=== PATIENT | male | born 1960 | race Caucasian/White ===

== ENCOUNTER 2022-08-16 14:13 | Emergency (ER) | payer MEDICAID, MEDICARE ==
[~2022-08-16] VITALS: Ht 175.3 cm; Wt 60.0 kg
[~2022-08-16 14:13] MED LIST: IBUP-1986 PO
[2022-08-16] MEDS ORDERED: AMOX-117 PO (16:55)
[2022-08-16] MEDS ORDERED: bacitracin 15gm ointment TP ONE (16:55)
[2022-08-16] MEDS: amox tr/potassium clavulanate 500mg/125mg TAB PO SCH ×2 (17:09→17:17)
[2022-08-16 17:16] VITALS: BP 96/60
== END 2022-08-16 17:19 | disposition home or self-care (01) ==
LOC: ER 14:14
DX: S61.031A Puncture wound without foreign body of right thumb without damage to nail, initial encounter (principal); Z91.010 Allergy to peanuts; Z79.2 Long term (current) use of antibiotics; Z79.899 Other long term (current) drug therapy; W55.01XA Bitten by cat, initial encounter; Y93.89 Activity, other specified; Y92.89 Other specified places as the place of occurrence of the external cause; Y99.8 Other external cause status
CPT/HCPCS: 99283

== ENCOUNTER 2025-05-18 12:05 | Day surgery (SDC) | payer MEDICARE ==
[2025-05-10 10:53] LABS: MEAN PLATELET VOLUME 7.8 FL (7.4-10.4); RED CELL DISTRIBUTION WIDTH 13.8 % (11.5-14.5)
[2025-05-10 11:11] LABS: CREATININE 0.94 MG/DL (0.60-1.10); TOTAL CARBON DIOXIDE 32.0 MMOL/L (24-32); eGFR 81 ML/MIN
[2025-05-17] MEDS: DOCUMENT DATE & TIME OF BETA-BLOCKER PO ONE (20:00)
[2025-05-18] VITALS (10 sets, daily range): BP systolic 89–106; BP diastolic 60–72; PULSE 53–90; RESP 16–20; TEMP 98.7; O2SAT 94–100
[~2025-05-18] VITALS: Ht 175.3 cm; Wt 64.3 kg
[2025-05-18] MEDS: ceFAZolin 2gm/dext,iso 50mL 50 ML IV ONE (05:30)
[~2025-05-18 12:05] MED LIST changes: +CARV6.253 PO; -IBUP-1986 PO; +LOSA25TA41 PO; +MAGN400T39 PO; +MULT-1085 PO; +ROSU40TA89 PO; +SPIR25TA5 PO
[2025-05-18] MEDS: ringers solution, lacted 1,000 ML IV SCH (13:08)
[2025-05-18] MEDS ORDERED: LIDOcaine 1% 30ml preserv. free vial ONE (14:46)
[2025-05-18] MEDS ORDERED: BUPIVAcaine 2.5mg/ml inj 50ml vial (contains preservative) ONE (14:46)
[2025-05-18] MEDS ORDERED: ringers solution, lacted 1,000 ML IV SCH (14:50)
[2025-05-18] MEDS ORDERED: acetaminophen 1,000mg/100ml IV 100 ML IV PRN (14:50)
[2025-05-18] MEDS ORDERED: hydrALAZINE 20mg/ml inj. IV PRN (14:50)
[2025-05-18] MEDS ORDERED: HYDROmorphone/PF 0.2 MG/ML SYRINGE IV PRN (14:50)
[2025-05-18] MEDS ORDERED: labetalol 20mg/4ml (5mg/ml) syringe IV PRN (14:50)
[2025-05-18] MEDS ORDERED: ondansetron/PF 4mg/2ml inj IV PRN (14:50)
[2025-05-18] MEDS ORDERED: morphine 4 MG/ML inj SYRINge IV PRN ×2 (14:50)
--- NOTE | 2025-05-18 15:02 | HISTORY AND PHYSICAL ---
History & Physical Providers to CC CC: YOAN KNOX MD ~ History of Present Illness Reason for Admit\Complaint: Right inguinal hernia History of Present Illness Interval history and physical exam Patient here today for elective repair of a right inguinal hernia He was seen in the office last month but denies any change in his past medical history since he was seen (please see previous history and physical exam for all pertinent details) He is scheduled for robotic assisted, laparoscopic mesh repair of a right, possible left inguinal hernia Allergies: Uncoded Allergies: NKDA (Allergy, Mild, 05/18/25) PEANUTS WERE LISTED ON HIS PROFILE AN ALLERGY, PT DENIES ALLERGY AND STATES HE EATS PEANUTS AND HAS NO PROBLEMS. Home Medications Home Medications Active Reported Multi Vitamin Daily (Multivitamin) 1 Each Tablet 1 Tab PO DAILY 30 Days Magnesium (Magnesium Oxide) 400 Mg Magnesium Tablet 1 Tab PO DAILY 30 Days NEEDED Rosuvastatin Calcium 40 Mg Tablet 1 Tab PO DAILY Losartan Potassium 25 Mg Tablet 1 Tab PO DAILY Spironolactone 25 Mg Tablet 1 Tab PO DAILY Carvedilol 6.25 Mg Tablet 1 Tab PO BID Exam Vitals: Vital Signs Date Time Temp Pulse Resp B/P (MAP) Pulse Ox O2 Delivery O2 Flow Rate FiO2 05/18/25 12:50 65 16 98 05/18/25 12:50 Room Air General: 64-year-old male in no acute distress Chest: Lungs are clear to auscultation bilaterally Cardiovascular: Regular rate and rhythm without murmurs Abdomen: Soft and nondistended Right inguinal hernia with the right side of the abdomen marked with indelible ink Problems: (1) Right inguinal hernia Assessment & Plan: The risk, benefits, and alternatives to a robotic assisted, laparoscopic right possible left inguinal hernia repair with mesh were discussed with the patient. Risks include, but are not limited to, bleeding, infection, injury to intra-abdominal structures, hernia recurrence and chronic postoperative pain. Patient verbalized understanding and wishes to proceed with surgery. We will do so today as scheduled YOAN KNOX MD May 18, 2025 15:02
[2025-05-18] MEDS ORDERED: midazolam 1 mg/ML 2ml injection ONE (15:11)
[2025-05-18] MEDS ORDERED: fentaNYL /PF 50mcg/ml 5ml ampule ONE (15:21)
[2025-05-18] MEDS ORDERED: propofol inj 20 ML IV ONE (15:22)
[2025-05-18] MEDS ORDERED: ondansetron/PF 4mg/2ml inj ONE (15:22)
[2025-05-18] MEDS ORDERED: dexamethasone sod phosphate 4mg/ml inj. ONE (15:22)
[2025-05-18] MEDS ORDERED: LIDOcaine 2% (20mg/ml) 5ml vial ONE (15:22)
[2025-05-18] MEDS ORDERED: rocuronium 10mg/ml inj IV ONE (15:22)
[2025-05-18] MEDS ORDERED: ePHEDrine 50MG/ML INJ. ONE (15:30)
[2025-05-18] MEDS ORDERED: 0.9 % SODIUM CHLORIDE 10 ML VIAL ONE (15:30)
[2025-05-18] MEDS ORDERED: glycopyrrolate 0.2mg/ml inj ONE (16:14)
--- NOTE | 2025-05-18 16:56 | OPERATIVE REPORT ---
Operative Report Providers to CC CC: JIMBO KNOX MD ~ Date of Procedure: May 18, 2025 Pre-Operative Diagnosis: Right inguinal hernia Post-Operative Diagnosis SAME as PRE-Op Procedure Performed Robotic assisted, laparoscopic right inguinal hernia repair with mesh Surgeon: Jimbo Knox MD FACS Weld Inspector None Anesthesiologist: Daya Goldstein Type of Anesthesia: General Findings: Moderate-sized indirect right inguinal hernia Wound class I Complications None Prosthetics\Implants used: Large Dextile mesh right Estimated Blood Loss: Minimal Specimen Removed: None Description of Procedure: Patient was brought to the operating room and identified by the nursing staff and the attending physician. Patient was placed supine and general anesthesia was induced. Patient's abdomen was prepped and draped in standard sterile fashion. Preoperative antibiotics were given. Supraumbilical incision was made to allow for standard [employer] entry technique. Laparoscope was inserted after insufflation. Bilateral, 8.5 mm robotic trochars were placed under laparoscopic guidance following administration of local anesthetic. The [employer] robotic arm was docked to the patient and instruments placed intra-abdominally under laparoscopic visualization. The left hemipelvis was examined and showed no evidence of left inguinal hernia. Preperitoneal flap was created and carried down to the symphysis pubis. The retropubic space of Retzius was developed and the bladder swept medially. Dissection was carried out laterally until a moderate-sized indirect right inguinal hernia sac was identified. This was moderate in size. Hernia sac was completely mobilized and reduced. Peritoneum was completely dissected away from the cord structures The critical view of the myopectineal orifice was achieved. Dissection was carried out laterally to allow space for mesh deployment. A large Dextile mesh and suture was passed intra-abdominally. Mesh was laid in the preperitoneal space covering both indirect, direct, and potential femoral and obturator hernias. Mesh laid without wrinkles or folds. 3 tacking sutures using 0 Ethibond were used to fix the mesh at the symphysis pubis, rectus abdominis, and just anterior to the anterior superior iliac spine. The peritoneal rent was then closed with running, 2/0, absorbable locking suture. [place] were retrieved. Abdomen was deflated and secondary trochars removed. Fascia at the umbilical port site was closed with 0 Vicryl sutures. Skin incisions were closed with 4-0 Monocryl sutures in a subcuticular fashion. Sterile dressings were applied. Patient was awakened and taken to the postanesthesia care unit in stable condition. Counts repoted as correct: Yes JIMBO KNOX MD May 18, 2025 16:56
[2025-05-18] MEDS: HYDROcodone/acetaminophen 5mg/325mg tablet PO PRN (17:41)
[2025-05-18] MEDS: HYDROmorphone/PF 0.2 MG/ML SYRINGE IV PRN (18:53)
== END 2025-05-18 18:59 | disposition home or self-care (01) ==
LOC: PAS 12:05
PROVIDERS: ATTEND Surgery
DX: K40.90 Unilateral inguinal hernia, without obstruction or gangrene, not specified as recurrent (principal); I11.0 Hypertensive heart disease with heart failure; I50.9 Heart failure, unspecified; F17.200 Nicotine dependence, unspecified, uncomplicated; Z79.899 Other long term (current) drug therapy; Z98.890 Other specified postprocedural states
CPT/HCPCS: 36415; 49650; 80053; 82948; 85025; A4215; A4314; A4618; C1781; J1100; J1171; J2003; J2250; J2405; J2704; J2710; J3010; J3490; J7030; J7120; Z7506; Z7508; Z7512; Z7610